=== PATIENT | female | born 1985 | race African-American/Black ===

== ENCOUNTER 2017-01-13 14:51 | Emergency (ER) | payer BC ==
--- NOTE | 2017-01-13 15:24 | ER Document Report ---
HPI - HPI Patient complains to provider of: right neck pain and left foot pain Onset: Other - few days Quality of pain: Achy Pain Level: 4 Context: 39-year-old female that works at a [employer] is complaining of right neck pain and left plantar foot/second and third toe pain when she walks. No injury. No radiculopathy. - REPRODUCTIVE Reproductive: REPORTS: : - DERM Skin Color: Normal Past Medical History - General Information source: Patient - Social History Smoking Status: Never Smoker Frequency of alcohol use: None Drug Abuse: None Lives with: Family Family History: Reviewed & Not Pertinent Renal/ Medical History: Denies: Hx Peritoneal Dialysis Psychiatric Medical History: Reports: Hx Depression Surgical Hx: Negative - Immunizations Immunizations up to date: Yes Hx Diphtheria, Pertussis, Tetanus Vaccination: Yes Vertical Provider Document - CONSTITUTIONAL Agree With Documented VS: Yes Exam Limitations: No Limitations General Appearance: No Apparent Distress - INFECTION CONTROL TRAVEL OUTSIDE OF THE [place] IN LAST 30 DAYS: No - HEENT HEENT: Atraumatic, Normocephalic Notes: Nontender C-spine, tender right trapezius muscle - NECK Neck: Supple. negative: Lymphadenopathy-Left, Lymphadenopathy-Right - RESPIRATORY Respiratory: Breath Sounds Normal, No Respiratory Distress O2 Sat by Pulse Oximetry: 99 - CARDIOVASCULAR Cardiovascular: Regular Rate, Regular Rhythm - MUSCULOSKELETAL/EXTREMETIES Musculoskeletal/Extremeties: MAEW, FROM, Non-Tender, No Edema. negative: Eccymosis Notes: No foot or toe tenderness - NEURO Level of Consciousness: Awake, Alert, Appropriate Motor/Sensory: No Motor Deficit, No Sensory Deficit - DERM Integumentary: Warm, Dry, No Rash Course - Re-evaluation Re-evalutation: 01/13/17 16:18 Patient does not want foot x-ray that was offered - Vital Signs Vital signs: Temp Pulse Resp BP Pulse Ox 98.5 F 102 H 15 154/97 H 99 01/13/17 14:54 01/13/17 14:54 01/13/17 14:54 01/13/17 14:54 01/13/17 14:54 Procedures - Immobilization Right Arm Time completed: 16:17 Pre-Proc Neuro Vasc Exam: Normal Immobilizer type: Sling Post-Proc Neuro Vasc Exam: Normal Alignment checked and good: Yes Discharge - Discharge Clinical Impression: Tendinitis of left foot Strain of right trapezius muscle Qualifiers: Encounter type: initial encounter Qualified Code(s): S46.811A - Strain of other muscles, fascia and tendons at shoulder and upper arm level, right arm, initial encounter Condition: Good Disposition: HOME, SELF-CARE Instructions: Muscle Strain ([facility]), Anti-Inflammatory Medication ([facility]), Acetaminophen, Warm Packs ([facility]), Exercises for the Foot Muscles ([facility]), Sling as Treatment ([facility]) Additional Instructions: warm compress to sore muscles wear supportive shoes see mission analyst if foot pain persists range of motion to shoulder, neck adjustable soft pillow and heating pad at night to er if worse Please complete the patient satisfaction survey if you get one, and return it.. If you do not receive a survey, then you can go to the [facility] website, [email or web address] and place your comments about your very good care. Thank you very much. It was a pleasure being your medical provider today. Prescriptions: Ibuprofen [Motrin 800 mg Tablet] 800 mg PO Q8HP PRN #30 tablet PRN Reason: Forms: Return to Work Referrals: DENITA LUIS MD [Primary Care Provider] - Follow up as needed KASSIE BARRY DPM [ACTIVE STAFF] - Follow up as needed Print Language: Wolof
[2017-01-13] MEDS ORDERED: IBUPROFEN 800 MG TABLET PO ONE (16:16)
[2017-01-13 16:47] VITALS: BP 139/92
== END 2017-01-13 16:41 | disposition home or self-care (01) ==
LOC: ER 14:51
DX: S29.012A Strain of muscle and tendon of back wall of thorax, initial encounter (principal); X58.XXXA Exposure to other specified factors, initial encounter; M77.52 Other enthesopathy of left foot and ankle
CPT/HCPCS: 99283